=== PATIENT | female | born 1960 | race Caucasian/White ===

== ENCOUNTER → 2024-12-09 14:28 | Outpatient (REF) | payer MEDICARE, BC, SELFPAY | LOC: WDC 14:28 | PROVIDERS: ATTENDING PHYSICIAN Family Medicine | DX: Z12.31 Encounter for screening mammogram for malignant neoplasm of breast (principal); Z78.0 Asymptomatic menopausal state | CPT/HCPCS: 77063; 77067; 77080 ==

== ENCOUNTER → 2024-12-16 12:55 | Outpatient (REF) | payer MEDICARE, BC, SELFPAY | LOC: HWRCS 12:55 | PROVIDERS: ATTENDING PHYSICIAN Family Medicine | DX: R94.31 Abnormal electrocardiogram [ECG] [EKG] (principal); I25.2 Old myocardial infarction | CPT/HCPCS: 93017; 93306 ==

== ENCOUNTER 2025-07-08 17:52 | Emergency (ER) | payer MEDICARE, BC, SELFPAY ==
[2025-07-08 17:55] VITALS: BP 190/105
[2025-07-08 20:28] VITALS: BMI 26.6
--- NOTE | 2025-07-08 20:49 | ED.SKININJ ---
HPI-Injury
General
Chief Complaint: Skin Surface Trauma
Source: patient
Exam Limitations: none
Time Seen by Provider: 07/08/25 20:13
Nursing documentation reviewed up to this point in time: agreed with
History of Present Illness-Injury
Is this injury a work related problem?: No
Is pt an associate of [facility]/[employer]?: No
Initial Injury comments:
Patient states she accidentally cut her hand with a knife while cutting bread. She sustained a laceration to her right palmar hand/thenar eminence. Injury occurred just prior to arrival.
Past History
Past History
ED Past Medical History: None
Review of Systems
Review of Systems
Allergies reviewed?: Yes
All Other Systems: ROS reviewed and negative except as documented in HPI and ROS
Constitutional: Reports no symptoms
Musculoskeletal: Reports no symptoms
Skin: Reports other (Laceration to right thenar eminence)
Neurological: Reports no symptoms
Psychiatric: Reports no symptoms
Skin Exam
Laceration
Right Palmar Hand:
Length in cm: 2.5
Orientation: horizontal
Type of Laceration: simple
Any active bleeding?: low grade venous oozing
Distal skin color and temperature: normal-warm & good color
Normal distal neurovascular exam: Yes
Range of motion: full
Phy Exam
General Physical Exam
General Presentation: well appearing and no apparent distress
General age: appears stated age
General Skin: warm and dry
General Habitus: normal
General Mental: alert
Musculoskeletal Exam
Musculoskeletal Exam: full ROM, neuro vasc intact and other (Sensation intact, no evidence of any tendon injury. She has full range of motion to right thumb, hand)
Skin Exam
Skin Exam: normal color, warm/dry and no rash
Psychiatric Exam
Psychiatric Exam: normal mood/affect
Course
Vital Signs
Initial and Last Documented VS:
Initial Vital Signs
Pulse Resp BP Pulse Ox
89 16 190/105 98
07/08/25 17:55 07/08/25 17:55 07/08/25 17:55 07/08/25 17:55
Last Documented Vital Signs
Pulse Resp BP Pulse Ox
89 16 190/105 98
07/08/25 17:55 07/08/25 17:55 07/08/25 17:55 07/08/25 17:55
Procedures
Laceration Closure
Right Palmar Hand:
Status of Wound: clean
Description of Wound Edges: sharp
Preparation: cleaned with saline
Anesthesia: 1% Lidocaine
Revision/Debridement: routine- no revision
Wound exploration: explored to base- no FB
Type of Closure: single layer closure
Skin Closure Material: 4-0 prolene
Number of sutures: 7
*Pulse Oximetry
SaO2: 98
Oxygen Mode of Delivery: Room air
Patient hypoxic: no
*Critical Care Note
Total Time (30-74mins, 75-104mins- exclusive of procedures): Not Applicable
Update Note
Update Note:
Patient to the emergency department for evaluation of a laceration to her right palmar hand/thenar eminence. She accidentally cut self with a knife while cutting bread. She has full range of motion to her hand. Full sensation and strength.
Laceration close bedside patient tolerated procedure without incident. She will be discharged home and will follow-up with her family doctor. She was given instructions on signs and symptoms to return to the emergency department and she is
agreeable to this plan.
ED Attending Note
-
Portions of this chart may have been created with voice recognition software.� Occasional wrong word or��sound alike� substitutions may have occurred due to the inherent limitations of voice recognition software.
Discharge Plan
Departure
Patient Disposition: Home (Routine Discharge)
Date of Disposition: 07/08/25
Time of Disposition: 20:48
Patient with high blood pressure during this ER visit?: No
Condition: Good
Covid-19: Not Applicable
Discharge Problem:
Hand laceration
Instructions: Laceration Repair With Stitches (DC)
Referrals:
NONE,* [Family Provider, Internal Medicine]
Activity Restrictions/Additional Instructions:
Follow-up with your family doctor in 2 days for wound check. Sutures can be removed in 7 to 10 days by your family doctor.
Interventions
Interventions:
*General Assessment Last Done: 07/08/25 20:28
*Neglect/Abuse Screening Last Done: 07/08/25 17:55
*ED COVID-19 Vaccine History Last Done: 07/08/25 20:28
*ED Influenza Vaccine History Last Done: 07/08/25 20:28
[facility] Fall Risk Assessment Tool Last Done: 07/08/25 20:28
*Risk Screen - Suicide (C-SSRS) Last Done: 07/08/25 17:55
ED-Skin Assessment Last Done: 07/08/25 20:28
Discharge Date and Time
Print Language: EMIRATI
[2025-07-08 21:00] VITALS: BP 154/85
== END 2025-07-08 21:00 | disposition home or self-care (01) ==
LOC: EMR 17:52
PROVIDERS: EMERGENCY PHYSICIAN Student in an Organized Health Care Education/Training Program
DX: S61.411A Laceration without foreign body of right hand, initial encounter (principal); W26.0XXA Contact with knife, initial encounter
CPT/HCPCS: 99282; 12001